=== PATIENT | female | born 1980 | race Caucasian/White ===

== ENCOUNTER 2021-06-23 07:05 | Emergency (ER) | payer BC ==
[~2021-06-23] VITALS: Ht 170.2 cm; Wt 70.4 kg
[2021-06-23 07:12] VITALS: BP 117/69
[2021-06-23 09:16] LABS: HEPATITIS B SURFACE AB 15.6 mIU/mL
[2021-06-23 09:26] LABS: HEPATITIS B SURFACE ANTIGEN NEGATIVE
== END 2021-06-23 07:35 | disposition home or self-care (01) ==
LOC: ER 07:05
DX: Z77.21 Contact with and (suspected) exposure to potentially hazardous body fluids (principal)
CPT/HCPCS: 36415; 99281